=== PATIENT | male | born 1985 | race Caucasian/White ===

== ENCOUNTER 2017-08-09 12:20 | Emergency (ER) | payer OTHER ==
--- NOTE | 2017-08-09 13:34 | Emergency Department Record ---
History of Present Illness - General Chief Complaint: Fall Injury Stated Complaint: FALL/HAND INJURY Time Seen by Provider: 08/09/17 12:37 Source: Patient Mode of Arrival: Ambulatory - History of Present Illness Initial Comments: PATIENT FELL ON STairs at home this Am and his left hand is swollen and wrist painful and elbow painful. No other injuries. MD Complaint: Fall Onset/Timin -: Hour(s) Fall From: Down stairs (#) When Fall Occurred: 1-[address] [address] Fall Occurred: Home Loss of Consciousness: None Prolonged Down Time?: No Severity: Moderate Severity scale (1-10): >10 Quality: Aching Associated Symptoms: Denies - Roc Coma Scale Eye Response: (4) Open spontaneously Motor Response: (6) Obeys commands Verbal Response: (5) Oriented Roc Total: 15 - Related Data Previous Rx's Medication Instructions Recorded Hydrocodone/Acetaminophen [[place] 1 each PO Q4HR #20 tablet 08/09/17 5-325 Tablet] Allergies Allergy/AdvReac Type Severity Reaction Status Date / Time No Known Drug Allergies Allergy Verified 08/09/17 12:33 Travel Screening - Travel/Exposure Within Last 30 Days Have you traveled within the last 30 days?: No - Travel/Exposure Within Last Year Have you traveled outside the [place] in the last year?: No - Additonal Travel Details Have you been exposed to anyone with a communicable illness?: No - Travel Symptoms Symptom Screening: None Review of Systems Reviewed: No additional complaints except as noted below Constitutional: Reports: As per HPI. Denies: Chills, Fever, Malaise, Night sweats, Weakness, Weight change Eyes: Reports: As per HPI. Denies: Eye discharge, Eye pain, Photophobia, Vision change ENT: Reports: As per HPI. Denies: Congestion, Dental pain, Ear pain, Epistaxis , Hearing loss, Throat pain Respiratory: Reports: As per HPI. Denies: Cough, Dyspnea, Hemoptysis, Stridor, Wheezes Cardiovascular: Reports: As per HPI. Denies: Arrhythmia, Chest pain, Dyspnea on exertion, Edema, Murmurs, Orthopnea, Palpitations, Paroxysmal nocturnal dyspnea, Rheumatic Fever, Syncope Endocrine: Reports: As per HPI. Denies: Fatigue, Heat or cold intolerance, Polydipsia, Polyuria Gastrointestinal: Reports: As per HPI. Denies: Abdominal pain, Constipation, Diarrhea, Hematemesis, Hematochezia, Melena, Nausea, Vomiting Genitourinary: Reports: As per HPI. Denies: Dysuria, Frequency, Hematuria, Incontinence, Retention, Testicular pain, Testicular mass, Urgency Musculoskeletal: Reports: As per HPI. Denies: Arthralgia, Back pain, Gout, Joint swelling, Myalgia, Neck pain Skin: Reports: As per HPI. Denies: Bruising, Change in color, Change in hair/ nails, Lesions, Pruritus, Rash Neurological: Reports: As per HPI. Denies: Abnormal gait, Confusion, Headache, Numbness, Paresthesias, Seizure, Tingling, Tremors, Vertigo, Weakness Psychiatric: Reports: As per HPI. Denies: Anxiety, Auditory hallucinations, Depression, Homicidal thoughts, Suicidal thoughts, Visual hallucinations Hematological/Lymphatic: Reports: As per HPI. Denies: Anemia, Blood Clots, Easy bleeding, Easy bruising, Swollen glands Past Medical History - SOCIAL HISTORY Smoking Status: Current every day smoker Alcohol Use: None Drug Use: None - RESPIRATORY Hx Respiratory Disorders: No - CARDIOVASCULAR Hx Cardio Disorders: No - NEURO Hx Neuro Disorders: No - GI Hx GI Disorders: No - Hx Genitourinary Disorders: No - ENDOCRINE Hx Endocrine Disorders: No - MUSCULOSKELETAL Hx Musculoskeletal Disorders: No - PSYCH Hx Psych Problems: No - HEMATOLOGY/ONCOLOGY Hx Hematology/Oncology Disorders: No Family Medical History Any Significant Family History?: Yes Physical Exam - General General Appearance: Alert, Oriented x3, Cooperative, No acute distress - Head Head exam: Normal inspection - Eye Eye exam: Normal appearance, PERRL Pupils: Normal accommodation - ENT ENT exam: Normal exam, Mucous membranes moist, Normal external ear exam, Normal orophraynx, TM's normal bilaterally Ear exam: Normal external inspection. negative: External canal tenderness Nasal Exam: Normal inspection. negative: Discharge, Sinus tenderness Mouth exam: Normal external inspection, Tongue normal Teeth exam: Normal inspection. negative: Dental caries Throat exam: Normal inspection. negative: Tonsillar erythema, Tonsillar exudate - Neck Neck exam: Normal inspection, Full ROM. negative: Tenderness - Respiratory Respiratory exam: Normal lung sounds bilaterally. negative: Respiratory distress - Cardiovascular Cardiovascular Exam: Regular rate, Normal rhythm, Normal heart sounds - GI/Abdominal GI/Abdominal exam: Soft, Normal bowel sounds. negative: Tenderness - Rectal Rectal exam: Deferred - exam: Deferred - Extremities Extremities exam: Normal capillary refill, Tenderness (swellin and tenderness left hand and pain in left wrist and left elbow.), Other (swollen left hand and neuro vascular intact) - Back Back exam: Reports: Normal inspection, Full ROM. Denies: Muscle spasm, Rash noted, Tenderness - Neurological Neurological exam: Alert, Normal gait, Oriented X3, Reflexes normal - Psychiatric Psychiatric exam: Normal affect, Normal mood - Skin Skin exam: Dry, Intact, Normal color, Warm Course Vital Signs 08/09/17 12:26 Temperature 98.4 F Pulse Rate 85 Respiratory 16 Rate Blood Pressure 133/75 Pulse Ox [address] Russell for his hand fracture left proximal first metacarpal with 40 degrees of angulation. - Reevaluation(s) Reevaluation #1: discussed case with Dr. Rodgers and he is to call friday and follow up with him next week. Wear splint till seen by Dr. Rodgers 08/09/17 14:16 Medical Decision Making - Data Complexity MDM Data: X-Ray Ordered and/or Reviewed (fracture of the left hand first metacarpal with 40 degrees of angulation) Disposition Clinical Impression: Hand fracture, left Qualifiers: Encounter type: initial encounter Fracture type: closed Qualified Code(s): S62.92XA - Unspecified fracture of left wrist and hand, initial encounter for closed fracture Disposition: Home, Self-Care Condition: (1) Good Instructions: Hand Fracture (ED) Additional Instructions: Call Dr. Rodgers's office friday [phone] for appointment. Prescriptions: Hydrocodone/Acetaminophen [[place] 5-325 Tablet] 1 each PO Q4HR #20 tablet Forms: Patient Portal Access Time of Disposition: 14:19 Quality - Quality Measures Quality Measures: N/A - Blood Pressure Screening Does Patient Have Any of the Following: No Blood Pressure Classification: Pre-Hypertensive BP Reading Systolic Measurement: 133 Diastolic Measurement: 75 Screening for High Blood Pressure: < Pre-Hypertensive BP, F/U Documented > [ G8950] Pre-Hypertensive Follow-up Interventions: Referral to alternative/primary care provider.
--- NOTE | 2017-08-10 19:09 | RADIOLOGY REPORT ---
EXAM: ELBOW, LEFT 3 VIEWS HISTORY: PATIENT HAS A HISTORY OF FALL. TECHNIQUE: Three views of the left elbow are provided without comparison examinations. FINDINGS: There is no radiographic evidence of a fracture or dislocation of the left elbow. No significant soft tissue abnormalities are visualized. Antecubital and olecranon fat pads are unremarkable. IMPRESSION: NO RADIOGRAPHIC EVIDENCE OF AN ACUTE PROCESS INVOLVING THE LEFT ELBOW. JOB [facility]BER: [id number] [facility]
--- NOTE | 2017-08-10 19:12 | RADIOLOGY REPORT ---
EXAM: HAND, LEFT 3 VIEWS HISTORY: PATIENT HAS A HISTORY OF FALL. TECHNIQUE: Three views of the left hand are provided without comparison examinations. FINDINGS: There is an oblique fracture through the proximal metaphysis of the first metacarpal with approximately 4.4 mm lateral dislocation of the distal fracture fragment. There is no extension of the fracture lines to the articular surface. Overlying soft tissue swelling is noted. IMPRESSION: POSTTRAUMATIC CHANGES OF THE BASE OF THE FIRST METACARPAL NOTED DISCUSSED ABOVE. JOB NUMBER: [id number] [facility]
--- NOTE | 2017-08-10 19:17 | RADIOLOGY REPORT ---
EXAM: WRIST, LEFT 3 VIEWS HISTORY: PATIENT HAS A HISTORY OF FALL. TECHNIQUE: Four views of the left wrist are provided without comparison examinations. FINDINGS: There is an oblique fracture at the proximal metaphysis of the first metacarpal without extension of the fracture lines to the first carpometacarpal articulation. The carpal bones are intact. The remaining visualized metacarpals are intact. There is approximately 3 mm separation of the scaphoid and lunate bones at the scapholunate articulation. This finding may indicate scapholunate ligament injury. If there is further clinical concern, then an MRI of the left wrist can be obtained for further evaluation. IMPRESSION: 1. FRACTURE AT THE BASE OF THE FIRST METACARPAL NOTED DISCUSSED ABOVE. 2. WIDENING OF THE SCAPHOLUNATE JOINT DISCUSSED ABOVE. THIS FINDING MAY INDICATE A SCAPHOLUNATE LIGAMENT INJURY. IF THERE IS FURTHER CLINICAL CONCERN, THEN MRI OF THE LEFT WRIST CAN BE OBTAINED FOR FURTHER EVALUATION. JOB NUMBER: [id number] [facility]
== END 2017-08-09 14:26 | disposition home or self-care (01) ==
LOC: ER 12:20
DX: S62.232A Other displaced fracture of base of first metacarpal bone, left hand, initial encounter for closed fracture (principal); S63.512A Sprain of carpal joint of left wrist, initial encounter; M25.522 Pain in left elbow; W10.9XXA Fall (on) (from) unspecified stairs and steps, initial encounter; Y92.009 Unspecified place in unspecified non-institutional (private) residence as the place of occurrence of the external cause; F17.210 Nicotine dependence, cigarettes, uncomplicated
CPT/HCPCS: 99283; 99284

== ENCOUNTER 2018-02-07 12:52 | Emergency (ER) | payer SELFPAY ==
--- NOTE | 2018-02-07 14:45 | Emergency Department Record ---
History of Present Illness - General Chief complaint: Male Urogenital Problem Stated complaint: SORE, SWOLLEN NEED STD TEST TOO Time Seen by Provider: 02/07/18 14:06 Source: Patient, RN notes reviewed Mode of Arrival: Ambulatory - History of Present Illness Initial comments: hoarse voice and sore throat and he wants to be checked for STD . He claims new sex partner female and he used a condom and no lesions on penis and no penile discharge and he denies oral sex. Onset/Timin -: Week(s) Severity: Mild Severity scale (1-10): 4 Quality: Burning Consistency: Constant - Related Data Home Medications Medication Instructions Recorded Confirmed Last Taken No Home Med [NO HOME MEDS] 02/07/18 02/07/18 Unknown Allergies Allergy/AdvReac Type Severity Reaction Status Date / Time No Known Drug Allergies Allergy Verified 02/07/18 13:36 Travel Screening - Travel/Exposure Within Last 30 Days Have you traveled within the last 30 days?: No - Travel/Exposure Within Last Year Have you traveled outside the [place] in the last year?: No - Additonal Travel Details Have you been exposed to anyone with a communicable illness?: No - Travel Symptoms Symptom Screening: None Review of Systems Reviewed: No additional complaints except as noted below Constitutional: Reports: As per HPI. Denies: Chills, Fever, Malaise, Night sweats, Weakness, Weight change Eyes: Reports: As per HPI. Denies: Eye discharge, Eye pain, Photophobia, Vision change ENT: Reports: As per HPI. Denies: Congestion, Dental pain, Ear pain, Epistaxis , Hearing loss, Throat pain Respiratory: Reports: As per HPI. Denies: Cough, Dyspnea, Hemoptysis, Stridor, Wheezes Cardiovascular: Reports: As per HPI. Denies: Arrhythmia, Chest pain, Dyspnea on exertion, Edema, Murmurs, Orthopnea, Palpitations, Paroxysmal nocturnal dyspnea, Rheumatic Fever, Syncope Endocrine: Reports: As per HPI. Denies: Fatigue, Heat or cold intolerance, Polydipsia, Polyuria Gastrointestinal: Reports: As per HPI. Denies: Abdominal pain, Constipation, Diarrhea, Hematemesis, Hematochezia, Melena, Nausea, Vomiting Genitourinary: Reports: As per HPI. Denies: Dysuria, Frequency, Hematuria, Incontinence, Retention, Testicular pain, Testicular mass, Urgency Musculoskeletal: Reports: As per HPI. Denies: Arthralgia, Back pain, Gout, Joint swelling, Myalgia, Neck pain Skin: Reports: As per HPI. Denies: Bruising, Change in color, Change in hair/ nails, Lesions, Pruritus, Rash Neurological: Reports: As per HPI. Denies: Abnormal gait, Confusion, Headache, Numbness, Paresthesias, Seizure, Tingling, Tremors, Vertigo, Weakness Psychiatric: Reports: As per HPI. Denies: Anxiety, Auditory hallucinations, Depression, Homicidal thoughts, Suicidal thoughts, Visual hallucinations Hematological/Lymphatic: Reports: As per HPI. Denies: Anemia, Blood Clots, Easy bleeding, Easy bruising, Swollen glands Past Medical History - SOCIAL HISTORY Smoking Status: Current every day smoker Alcohol Use: None Drug Use: None - RESPIRATORY Hx Respiratory Disorders: No - CARDIOVASCULAR Hx Cardio Disorders: No - NEURO Hx Neuro Disorders: No - GI Hx GI Disorders: No - Hx Genitourinary Disorders: No - ENDOCRINE Hx Endocrine Disorders: No - MUSCULOSKELETAL Hx Musculoskeletal Disorders: No - PSYCH Hx Psych Problems: No - HEMATOLOGY/ONCOLOGY Hx Hematology/Oncology Disorders: No Family Medical History Any Significant Family History?: Yes Physical Exam - General General Appearance: Alert, Oriented x3, Cooperative, No acute distress - Head Head exam: Normal inspection - Eye Eye exam: Normal appearance, PERRL Pupils: Normal accommodation - ENT ENT exam: Normal exam, Mucous membranes moist, Normal external ear exam, Normal orophraynx, TM's normal bilaterally Ear exam: Normal external inspection. negative: External canal tenderness Nasal Exam: Normal inspection. negative: Discharge, Sinus tenderness Mouth exam: Normal external inspection, Tongue normal Teeth exam: Normal inspection. negative: Dental caries Throat exam: Normal inspection. negative: Tonsillar erythema, Tonsillar exudate - Neck Neck exam: Normal inspection, Full ROM. negative: Tenderness - Respiratory Respiratory exam: Normal lung sounds bilaterally. negative: Respiratory distress - Cardiovascular Cardiovascular Exam: Regular rate, Normal rhythm, Normal heart sounds - GI/Abdominal GI/Abdominal exam: Soft, Normal bowel sounds. negative: Tenderness - Rectal Rectal exam: Deferred - exam: Deferred - Extremities Extremities exam: Normal inspection, Full ROM, Normal capillary refill. negative: Tenderness - Back Back exam: Reports: Normal inspection, Full ROM. Denies: Muscle spasm, Rash noted, Tenderness - Neurological Neurological exam: Alert, Normal gait, Oriented X3, Reflexes normal - Psychiatric Psychiatric exam: Normal affect, Normal mood - Skin Skin exam: Dry, Intact, Normal color, Warm Course Vital Signs 02/07/18 13:26 Temperature 97.9 F Pulse Rate 73 Respiratory 16 Rate Blood Pressure 121/73 Pulse Ox 97 Medical Decision Making - Lab Data Lab Results 02/07/18 Range/Units 13:50 Group A Strep Screen Negative (NEGATIVE) Disposition Clinical Impression: Pharyngitis Qualifiers: Pharyngitis/tonsillitis etiology: other specified organisms Qualified Code(s): J02.8 - Acute pharyngitis due to other specified organisms Disposition: Home, Self-Care Condition: (1) Good Instructions: Pharyngitis (ED) Additional Instructions: follow up with family in 9 days and please give family list Forms: Patient Portal Access Time of Disposition: 14:44 Quality - Quality Measures Quality Measures: N/A - Blood Pressure Screening Does Patient Have Any of the Following: No Blood Pressure Classification: Pre-Hypertensive BP Reading Systolic Measurement: 121 Diastolic Measurement: 73 Screening for High Blood Pressure: < Pre-Hypertensive BP, F/U Documented > [ G8950] Pre-Hypertensive Follow-up Interventions: Referral to alternative/primary care provider.
== END 2018-02-07 15:58 | disposition home or self-care (01) ==
LOC: ER 12:52
DX: J20.9 Acute bronchitis, unspecified (principal); N48.89 Other specified disorders of penis; F17.210 Nicotine dependence, cigarettes, uncomplicated
CPT/HCPCS: 87880; 99282